=== PATIENT | male | born 2000 | race Two or more races ===

== ENCOUNTER 2020-05-11 21:49 | Emergency (ER) | payer OTHER ==
[~2020-05-11] VITALS: Ht 170.2 cm; Wt 81.6 kg
[2020-05-11 22:05] VITALS: BP 128/79
--- NOTE | 2020-05-11 22:10 | NUR ---
ED Nurse Note: PT AMBULATED INTO ED FROM HOME CO SWALLOWING A FISHBONE WHOLE ON ACCIDENT. PT STATES HE CAN FEEL THE FISHBONE MOVING AT BACK OF THROAT BUT CANNOT MANAGE TO COUGH IT UP OR PUSH IT FURTHER DOWN WITH FLUIDS OR ADDITIONAL FOOD. PT STATES PAIN /10. PT AAO X 4, AMBULATES WITH STEADY GAIT. AWAITING ERMD AT BEDSIDE. AWAITING FURTHER ORDERS.
--- NOTE | 2020-05-11 22:12 | NUR ---
ED Nurse Note: ERMD AT BEDSIDE WITH 1 RN FOR REMOVAL OF FISHBONE FROM BACK OF THROAT. REMOVAL SUCCESSFUL, NO SS OF DISTRESS NOTED. WILL CONTINUE TO MONITOR.
--- NOTE | 2020-05-11 22:15 | Emergency Room Report ---
History of Present Illness General Chief Complaint: Foreign Body Source: Patient Present Illness HPI Disclaimer: Please note that this report is being documented using [employer] technology. This can lead to erroneous entry secondary to incorrect interpretation by the dictating instrument. HPI: Otherwise healthy 19-year-old male presents for evaluation of foreign body in his throat. He was eating fish approximately 3 hours ago that he brought from the store. Feels the bone may have been stuck in his throat. Reports pain with swallowing but no difficulty breathing, tolerating secretions without difficulty, speaking with normal phonation. Denies fever, chills, hematemesis, other symptoms. He feels it is stuck on the back of his throat. No other complaints from patient at this time. PMH: Reviewed PSH: Reviewed Allergies: Reviewed Social Hx: Reviewed Allergies: Coded Allergies: No Known Allergies (Unverified , 05/11/20) COVID-19 Screening Contact w/high risk pt: No Experienced COVID-19 symptoms?: No COVID-19 Testing performed BRICK BURNER HEAD: No Nursing Documentation-PMH Past Medical History: No Stated History Review of Systems All Other Systems: negative except mentioned in HPI Physical Exam Vital Signs Date Time Temp Pulse Resp B/P (MAP) Pulse Ox O2 Delivery O2 Flow Rate FiO2 05/11/20 21:55 97.5 84 18 128/79 (95) 97 Room Air General: Awake and alert, no acute distress HEENT: NC/AT. EOMI. normal phonation. Tolerating secretions. No distress. No stridor. Uvula midline. Tonsils 1+ nonobstructing. A translucent small fishbone approximately 1 cm sticking out of the left tonsil. No bleeding. No surrounding edema or erythema. Resp: Normal work of breathing Skin: Intact. No abrasions, laceration or rash over the exposed skin MSK: Normal tone and bulk. Moving all extremities. No obvious deformity. Neuro: Awake and alert. Mentating appropriately Medical Decision Making Diagnostic Impression: Primary Impression: Foreign body in throat ER Course Patient presents with foreign body sensation and found to have a small fishbone lodged over his left tonsil. Easily removed. No bleeding. Tolerated well. No respiratory distress, tolerating secretions, no sign of further bleeding, hematoma or infection. Stable for outpatient follow-up. Instructed to return with new or worsening symptoms. He understands and agrees with this treatment plan. Last Vital Signs Date Time Temp Pulse Resp B/P (MAP) Pulse Ox O2 Delivery O2 Flow Rate FiO2 05/11/20 21:55 97.5 84 18 128/79 (95) 97 Room Air Disposition: HOME, SELF-CARE Condition: Stable Patient Instructions: Swallowed Foreign Body, Adult Additional Instructions: Please follow-up with your primary care doctor in the next 1 to 3 days to discuss this emergency department visit and for reevaluation. If you have any new or worsening symptoms please return to the emergency department for reevaluation. Please note that this report is being documented using [employer] technology. This can lead to erroneous entry secondary to incorrect interpretation by the dictating instrument. Micky Hernandez MD May 11, 2020 22:15
[2020-05-11 22:17] VITALS: BP 122/83
--- NOTE | 2020-05-11 22:17 | NUR ---
ER DISCHARGE NOTE: Patient is cleared to be discharged HOME per ERMD, pt is aox4, 100% on room air, with stable vital signs. pt was given dc instructions, pt was able to verbalize understanding, pt id band removed without complications. pt is able to ambulate with steady gait. pt took all belongings.
== END 2020-05-11 22:17 | disposition home or self-care (01) ==
LOC: EMR 22:00
DX: T17.228A Food in pharynx causing other injury, initial encounter (principal); X58.XXXA Exposure to other specified factors, initial encounter; Y93.89 Activity, other specified; Y92.9 Unspecified place or not applicable
CPT/HCPCS: 99282